=== PATIENT | male | born 1975 | race Caucasian/White ===

== ENCOUNTER 2019-07-16 21:01 | Emergency (ER) | payer OTHER ==
[~2019-07-16] VITALS: Ht 175.3 cm; Wt 98.0 kg
[2019-07-16 21:05] VITALS: BP 156/104
--- NOTE | 2019-07-16 21:07 | PHYS DOC ---
Past History Past Medical History: Sciatica General Adult HPI: HPI: "... I got a fever...and now this really bad rt.hip pain.... I called ... they said I might have a septic hip.... I had been camping...but I have not had any tick bites..."'' I am having trouble sleeping because of discomfort..." Patient is a 44 year old male who presents with above hx and complaints of fever and severe right hip pain for the last 3 days. Patient denies any recent travel outside the [place] area. No recent TDY's. No history of immunosuppression. No history of severe ill contacts. Patient is up-to-date with vaccinations through the . Patient does have a past history of sciatica. Patient relates his pain is not similar to his sciatic pain. On exam pain appears to be located in right hip bursa. Does not appear to have a sciatic component. Pt. follows with . Review of Systems: Review of Systems: Constitutional: Complains of fever or chills Eyes: Denies change in visual acuity HENT: Denies nasal congestion or sore throat Respiratory: Denies cough or shortness of breath Cardiovascular: Denies chest pain or edema GI: Denies abdominal pain, nausea, vomiting, bloody stools or diarrhea : Denies dysuria Musculoskeletal: Complains of severe right hip pain Integument: Denies rash Neurologic: Denies headache, focal weakness or sensory changes Endocrine: Denies polyuria or polydipsia Lymphatic: Denies swollen glands Psychiatric: Denies depression or anxiety Heart Score: Risk Factors: Risk Factors: DM, Current or recent (<one month) smoker, HTN, HLP, family history of CAD, obesity. Risk Scores: Score 0 - 3: 2.5% MACE over next 6 weeks - Discharge Home Score 4 - 6: 20.3% MACE over next 6 weeks - Admit for Clinical Observation Score 7 - 10: 72.7% MACE over next 6 weeks - Early Invasive Strategies Family History: Family History: Noncontributory Current Medications: Current Meds: See nursing for home meds Allergies: Allergies: No known drug allergies Physical Exam: PE: Constitutional: Well developed, well nourished, mild distress, non-toxic appearance. [] HENT: Normocephalic, atraumatic, bilateral external ears normal, oropharynx moist, no oral exudates, nose swollen turbinates and clear rhinorrhea Eyes: PERRLA, EOMI, conjunctiva normal, no discharge. [] Neck: Normal range of motion, no tenderness, supple, no stridor. [] Cardiovascular:Heart rate regular rhythm, no murmur [] Lungs & Thorax: Bilateral breath sounds equal at apex on auscultation [] Abdomen: Bowel sounds normal, soft, no tenderness, no masses, no pulsatile masses. [] Skin: Warm, dry, no erythema, no rash. [] Back: No tenderness, no CVA tenderness. [] Extremities: No tenderness, no cyanosis, no clubbing, ROM intact, no edema. [Except] Right hip bursa area tender to palpation Neurologic: Alert and oriented X 3, normal motor function, normal sensory function, no focal deficits noted. [] DTRs +2 patella and Achilles. Psychologic: Affect anxious, judgement normal, mood normal. [] EKG: EKG: [] Radiology/Procedures: Radiology/Procedures: [][place] [address] IMAGING REPORT Signed PATIENT: ANG NICHOLS ACCOUNT: [id number] : 1975 LOCATION: ER AGE: 44 SEX: M EXAM STATUS: REG ER ORD. PHYSICIAN: ELAINE BARRETT MD REASON: Severe lower back pain, evaluate Rt. hip for septic joint PROCEDURE: CT LUMBAR SPINE WO CONTRAST PQRS Compliance Statement: One or more of the following individualized dose reduction techniques were utilized for this examination: 1. Automated exposure control 2. Adjustment of the mA and/or kV according to patient size 3. Use of iterative reconstruction technique CT LUMBAR SPINE WO CONTRAST, CT PELVIS W/CONTRAST Clinical Indication: Severe lower back and right hip pain. Comparison: None. TECHNIQUE: Helical CT imaging of the lumbar spine is performed without IV contrast. Helical CT imaging of the pelvis is performed after 74 cc of Omnipaque 300 IV contrast. Findings: There is no acute fracture of the lumbar spine. The vertebral body height and alignment are maintained. There is mild degenerative endplate spurring. There is no significant disc space narrowing. L4/L5: There is a broad-based posterior disc osteophyte complex. There is mild facet hypertrophy. Central canal stenosis is normal within mild. The neural foramina are adequate. L5/S1: Small posterior disc bulge. The central canal and neural foramina are patent. There is a 4 mm nonobstructing left renal calculus. There is no hydronephrosis. Appendectomy. Urinary bladder is normal. Prostate size normal. No pelvic free fluid. There is no right hip joint effusion. There is no acute fracture. No intramuscular hematoma. The sacrum alignment is maintained. No acute pelvic fracture. IMPRESSION: 1. No acute fracture or malalignment of the lumbar spine. There is no significant central canal stenosis. 2. No acute pelvic or hip fracture. There is no right hip joint effusion. 3. 4 mm nonobstructing left renal calculus. Electronically signed by: Eben Theodore MD (07/16/2019 11:44 PM) [id number] DICTATED AND SIGNED BY: EBEN THEODORE MD DATE: 07/16/19 2344 CC: ELAINE BARRETT MD; MYNOR RUSH DO ~ Course & Med Decision Making: Course & Med Decision Making Pertinent Labs and Imaging studies reviewed. (See chart for details) Patient take Tylenol or Ibuprofen as needed for discomfort and fever. Patient push fluids. Patient follow-up primary care. Patient to review CT findings with primary care and orthopedics. Patient may take Vicoprofen up to 4 times a day for marked pain. Return if any concerns. Self isolate. Suspect a component of viral syndrome. Follow-up pending cultures. Take dose of MOM when home. Impression: 1. Right hip pain-appears to be bursa area 2. Leukocytosis 11.2 3. Glucose 136 4. Hypomagnesia 1.7 5. Mild Elevation of CRP 11.0 6. Suspect Viral Syndrome [] Dragon Disclaimer: Adilia Disclaimer: This electronic medical record was generated, in whole or in part, using a voice recognition dictation system. Departure Departure: Disposition: 01 HOME/RESIDENCE PRIOR TO ADM Condition: STABLE Referrals: MYNOR RUSH DO (PCP) Scripts Hydrocodone/Ibuprofen (HYDROCODONE-IBUPROFEN 7.5-200 ) 1 Each Tablet 1 TAB PO PRN Q6HRS PRN for PAIN, #30 TAB 0 Refills Prov: ELAINE BARRETT MD 07/17/19 Adilia Disclaimer This chart was dictated in whole or in part using Voice Recognition software in a busy, high-work load, and often noisy Emergency Department environment. It may contain unintended and wholly unrecognized errors or omissions. ELAINE BARRETT MD July 16, 2019 21:07
[2019-07-16] MEDS ORDERED: IV RINGERS SOLUTION,LACTATED 1,000 ML IV SCH (22:15)
[2019-07-16] MEDS ORDERED: KETOROLAC 30 MG/ML VIAL. IVP ONE (22:15)
[2019-07-16 22:57] LABS: CALCIUM 8.6 mg/dL (8.5-10.1); CREATININE 1.1 mg/dL (0.7-1.3); GFR 73.1
[2019-07-16] MEDS ORDERED: IOHEXOL 300 MG/ML 75 ML VIAL. IV ONE (23:00)
[2019-07-16] MEDS ORDERED: CONTRAST GIVEN MC PRN (23:00)
[2019-07-16 23:03] LABS: ALBUMIN 3.7 g/dL (3.4-5.0); DIRECT BILIRUBIN 0.1 mg/dL (0.0-0.2); MAGNESIUM 1.7 mg/dL (1.8-2.4); TOTAL BILIRUBIN 0.2 mg/dL (0.2-1.0); TOTAL PROTEIN 6.6 g/dL (6.4-8.2)
[2019-07-16 23:44] LABS: BARBITURATES NEG (NEG); BENZODIAZEPINES NEG (NEG); CANNABINOIDS NEG (NEG); COCAINE NEG (NEG); METHADONE NEG (NEG); OPIATES NEG (NEG); PHENCYCLIDINE NEG (NEG)
[2019-07-16 23:46] LABS: BILIRUBIN,URINE NEG (NEG); CLARITY,URINE CLEAR; COLOR,URINE YELLOW; GLUCOSE,URINE NEG (NEG)
[2019-07-16 23:47] LABS: BACTERIA,URINE 0 /HPF (0-FEW); NITRITE,URINE NEG (NEG); RBC,URINE 0 /HPF (0-2); SQUAMOUS EPITHELIAL CELL,UR OCC /LPF; UROBILINOGEN,URINE 0.2 mg/dL (0.2 mg/dL); WBC,URINE OCC /HPF (0-4)
--- NOTE | 2019-07-16 23:47 | RAD ---
PQRS Compliance Statement: One or more of the following individualized dose reduction techniques were utilized for this examination: 1. Automated exposure control 2. Adjustment of the mA and/or kV according to patient size 3. Use of iterative reconstruction technique CT LUMBAR SPINE WO CONTRAST, CT PELVIS W/CONTRAST Clinical Indication: Severe lower back and right hip pain. Comparison: None. TECHNIQUE: Helical CT imaging of the lumbar spine is performed without IV contrast. Helical CT imaging of the pelvis is performed after 74 cc of Omnipaque 300 IV contrast. Findings: There is no acute fracture of the lumbar spine. The vertebral body height and alignment are maintained. There is mild degenerative endplate spurring. There is no significant disc space narrowing. L4/L5: There is a broad-based posterior disc osteophyte complex. There is mild facet hypertrophy. Central canal stenosis is normal within mild. The neural foramina are adequate. L5/S1: Small posterior disc bulge. The central canal and neural foramina are patent. There is a 4 mm nonobstructing left renal calculus. There is no hydronephrosis. Appendectomy. Urinary bladder is normal. Prostate size normal. No pelvic free fluid. There is no right hip joint effusion. There is no acute fracture. No intramuscular hematoma. The sacrum alignment is maintained. No acute pelvic fracture. IMPRESSION: 1. No acute fracture or malalignment of the lumbar spine. There is no significant central canal stenosis. 2. No acute pelvic or hip fracture. There is no right hip joint effusion. 3. 4 mm nonobstructing left renal calculus. Electronically signed by: Eben Theodore MD (07/16/2019 11:44 PM) [id number]
[2019-07-16 23:51] LABS: AMPHETAMINE/METHAMPHETAMINE NEG (NEG)
[2019-07-17 00:01] LABS: BASO # 0.1 x10^3/uL (0.0-0.2); BASO % 1 % (0-3); EOS # 0.1 x10^3/uL (0.0-0.7); EOS % 1 % (0-3); HEMATOCRIT 40.2 % (39.0-53.0); HEMOGLOBIN 13.7 g/dL (13.0-17.5); LYMPH # 1.6 x10^3/uL (1.0-4.8); LYMPH % 14 % (24-48); MEAN CORPUSCULAR HEMOGLOBIN 29 pg (25-35); MEAN CORPUSCULAR HGB CONC 34 g/dL (31-37); MEAN CORPUSCULAR VOLUME 86 fL (79-100); MONO % 9 % (0-9); NEUT # 8.4 x10^3uL (1.8-7.7); NEUT % 75 % (31-73); PLATELET COUNT 208 x10^3/uL (140-400); RED BLOOD COUNT 4.69 x10^6/uL (4.30-5.70); RED CELL DISTRIBUTION WIDTH 13.2 % (11.5-14.5); WHITE BLOOD COUNT 11.2 x10^3/uL (4.0-11.0)
[2019-07-17] MEDS ORDERED: MORPHINE SULFATE 10 MG/ML SYRINGE. ONE (00:11)
[2019-07-17] MEDS ORDERED: HYDR-1179 PO (00:18)
[2019-07-17] MEDS ORDERED: MORPHINE SULFATE 10 MG/ML SYRINGE. SQ ONE (00:30)
[2019-07-17 00:35] LABS: INFLUENZA A PATIENT NEGATIVE (NEGATIVE); INFLUENZA B PATIENT NEGATIVE (NEGATIVE)
== END 2019-07-17 01:00 | disposition home or self-care (01) ==
LOC: ER 21:01
DX: M25.551 Pain in right hip (principal); D72.829 Elevated white blood cell count, unspecified; E83.42 Hypomagnesemia; R79.82 Elevated C-reactive protein (CRP); R50.9 Fever, unspecified
CPT/HCPCS: 36415; 72131; 72193; 80048; 80076; 80307; 81001; 82550; 83690; 83735; 84484; 85025; 85610; 85730; 86140; 87040; 87804; 96372; 96374; 99285; J1885; J2270; J7120; Q9967

== ENCOUNTER 2019-07-18 14:23 | Emergency (ER) | payer OTHER ==
[~2019-07-18] VITALS: Ht 175.3 cm; Wt 98.0 kg
[~2019-07-18 14:23] MED LIST: HYDR-1179 PO
[2019-07-18 14:39] VITALS: BP 164/107
[2019-07-18] MEDS ORDERED: IOHEXOL 300 MG/ML 75 ML VIAL. IV ONE (15:00)
[2019-07-18] MEDS ORDERED: KETOROLAC 30 MG/ML VIAL. ONE (15:09)
[2019-07-18 15:23] LABS: BASO % 0 % (0-3); EOS # 0.1 x10^3/uL (0.0-0.7); EOS % 1 % (0-3); HEMATOCRIT 41.2 % (39.0-53.0); HEMOGLOBIN 14.1 g/dL (13.0-17.5); LYMPH # 1.8 x10^3/uL (1.0-4.8); LYMPH % 20 % (24-48); MEAN CORPUSCULAR HEMOGLOBIN 29 pg (25-35); MEAN CORPUSCULAR HGB CONC 34 g/dL (31-37); MEAN CORPUSCULAR VOLUME 86 fL (79-100); MONO # 0.9 x10^3/uL (0.0-1.1); MONO % 10 % (0-9); NEUT # 6.3 x10^3uL (1.8-7.7); NEUT % 69 % (31-73); PLATELET COUNT 204 x10^3/uL (140-400); RED BLOOD COUNT 4.79 x10^6/uL (4.30-5.70); RED CELL DISTRIBUTION WIDTH 13.1 % (11.5-14.5); WHITE BLOOD COUNT 9.2 x10^3/uL (4.0-11.0)
[2019-07-18 15:32] LABS: CALCIUM 8.8 mg/dL (8.5-10.1); CREATININE 1.1 mg/dL (0.7-1.3); GFR 73.1; POTASSIUM 3.7 mmol/L (3.5-5.1)
[2019-07-18 15:46] LABS: ALBUMIN 3.6 g/dL (3.4-5.0); TOTAL BILIRUBIN 0.4 mg/dL (0.2-1.0); TOTAL PROTEIN 7.2 g/dL (6.4-8.2)
--- NOTE | 2019-07-18 15:49 | RAD ---
EXAM: CT pelvis with contrast DATE: 07/18/2019 2:43 PM COMPARISON: No prior INDICATION: Right hip pain, fevers TECHNIQUE: CT of the pelvis was performed following the administration of IV contrast. Axial, coronal and sagittal reformatted images were generated. PQRS compliance statement - One or more of the following individualized dose reduction techniques were utilized for this study: 1. Automated exposure control 2. Adjustment of the mA and/or kV according to patient size 3. Use of iterative reconstruction technique FINDINGS: Evaluation for joint infection is limited by CT. Within these constraints, no definite erosive/destructive change or periostitis is seen to suggest acute osteomyelitis. No definite hip joint effusion is seen. Grossly normal muscle bulk about the pelvis, without significant fatty atrophy. Moderate colonic stool content. Prior appendectomy changes are seen. No small or large bowel dilatation in the visualized portions.. No pelvic lymphadenopathy. IMPRESSION: 1. Evaluation for joint infection is limited by CT. No definite CT evidence for osteomyelitis. No joint effusion or periarticular peripherally enhancing fluid collection is seen to suggest associated infection. However, MRI is more sensitive and is recommended if there is persistent clinical concern. Electronically signed by: Gustabo Callahan MD (07/18/2019 3:46 PM) DENNIS
--- NOTE | 2019-07-18 16:54 | PHYS DOC ---
Past History Past Medical History: Sciatica Past Surgical History: No Surgical History, Appendectomy Additional Past Surgical Histo: Has loop monitor Alcohol Use: Occasionally General Adult EDM: Chief Complaint: HIP PAIN HPI: HPI: 44-year-old male past medical history significant for hypertension, hyperlipidemia and DDD, presents to the ED after nurse practitioner at [facility] office referred patient to come to the ED, after reviewing his 07/13 ed workup (via phone call), concerned for his "white count." Patient presents to the ED as a bounce back, with acute on chronic atraumatic right hip pain, states pain is improving, last had a fever 2 days ago. Able to bear weight and flex/extend hip. Took 1 tablet of his hydrocodone/ibuprofen with some relief. Denies any STI symptoms, declines any STI testing. ROS: Denies associated midline back pain, weight loss, saddle anesthesia, urinary bowel retention or incontinence, abdominal pain, nausea, vomiting, chest pain, sore throat, cough, dyspnea, neck stiffness, headache, neurologic deficits, radiculopathy dysuria, hematuria, urethral discharge or paresthesias. Current Medications: Current Meds: Current Medications Medications (Trade) Dose Ordered Sig/Kyler Start Time Stop Time Status Last Admin Dose Admin Iohexol (Omnipaque 300 Mg/ml) 75 ml 1X ONCE 07/18/19 15:00 07/18/19 15:01 DC 07/18/19 15:14 75 ML Ketorolac Tromethamine (Toradol 30mg Vial) 30 mg STK-MED ONCE 07/18/19 15:09 07/18/19 15:09 DC Allergies: Allergies: Allergies Coded Allergies Type Severity Reaction Last Updated Verified No Known Drug Allergies 07/16/19 No Physical Exam: PE: Constitutional: Well developed, well nourished, no acute distress-comfortable even w/ROM testing, non-toxic appearance, mildly obese HENT: Normocephalic, atraumatic, bilateral external ears normal, oropharynx moist, no oral exudates, nose normal, no neck stiffness Eyes: EOMI, conjunctiva normal, no discharge. [] Neck: Normal range of motion, no tenderness, supple, no stridor. [] Cardiovascular:Heart rate regular rhythm, no murmur [] Lungs & Thorax: Bilateral breath sounds clear to auscultation [] Abdomen: Bowel sounds normal, soft, no tenderness, no masses, no pulsatile masses. [] Skin: Warm, dry, no erythema, no rash-no right hip effusion Back: No tenderness, no CVA tenderness. [] Extremities: No tenderness, no cyanosis, no clubbing, ROM intact, no edema, full hip flexion and extension, straight lefg test negative bl Neurologic: Alert and oriented X 3, normal motor function, normal sensory function, no focal deficits noted, ambulates with a steady gait, Psychologic: Affect normal, judgement normal, mood normal. [] Current Patient Data: Labs: Laboratory Tests Test 07/18/19 15:04 White Blood Count 9.2 x10^3/uL (4.0-11.0) Red Blood Count 4.79 x10^6/uL (4.30-5.70) Hemoglobin 14.1 g/dL (13.0-17.5) Hematocrit 41.2 % (39.0-53.0) Mean Corpuscular Volume 86 fL (79-100) Mean Corpuscular Hemoglobin 29 pg (25-35) Mean Corpuscular Hemoglobin Concent 34 g/dL (31-37) Red Cell Distribution Width 13.1 % (11.5-14.5) Platelet Count 204 x10^3/uL (140-400) Neutrophils (%) (Auto) 69 % (31-73) Lymphocytes (%) (Auto) 20 % (24-48) L Monocytes (%) (Auto) 10 % (0-9) H Eosinophils (%) (Auto) 1 % (0-3) Basophils (%) (Auto) 0 % (0-3) Neutrophils # (Auto) 6.3 x10^3uL (1.8-7.7) Lymphocytes # (Auto) 1.8 x10^3/uL (1.0-4.8) Monocytes # (Auto) 0.9 x10^3/uL (0.0-1.1) Eosinophils # (Auto) 0.1 x10^3/uL (0.0-0.7) Basophils # (Auto) 0.0 x10^3/uL (0.0-0.2) Sodium Level 140 mmol/L (136-145) Potassium Level 3.7 mmol/L (3.5-5.1) Chloride Level 104 mmol/L (98-107) Carbon Dioxide Level 27 mmol/L (21-32) Anion Gap 9 (6-14) Blood Urea Nitrogen 16 mg/dL (8-26) Creatinine 1.1 mg/dL (0.7-1.3) Estimated GFR (Cockcroft-Gault) 73.1 BUN/Creatinine Ratio 15 (6-20) Glucose Level 119 mg/dL (70-99) H Lactic Acid Level 1.5 mmol/L (0.4-2.0) Calcium Level 8.8 mg/dL (8.5-10.1) Total Bilirubin 0.4 mg/dL (0.2-1.0) Aspartate Amino Transferase (AST) 22 U/L (15-37) Alanine Aminotransferase (ALT) 45 U/L (16-63) Alkaline Phosphatase 42 U/L (46-116) L Total Protein 7.2 g/dL (6.4-8.2) Albumin 3.6 g/dL (3.4-5.0) Albumin/Globulin Ratio 1.0 (1.0-1.7) Vital Signs: Vital Signs Date Time Temp Pulse Resp B/P (MAP) Pulse Ox O2 Delivery O2 Flow Rate FiO2 07/18/19 14:39 97.9 78 16 164/107 (126) 96 Room Air EKG: EKG: [] Radiology/Procedures: Radiology/Procedures: []Signed PATIENT: ANG NICHOLS ACCOUNT: [id number] : 1975 LOCATION: ER AGE: 44 SEX: M EXAM STATUS: REG ER ORD. PHYSICIAN: MGIUEL ANGEL CHIN DO REASON: right hip pain,fever, concern for infection in hip PROCEDURE: CT PELVIS W/CONTRAST EXAM: CT pelvis with contrast DATE: 07/18/2019 2:43 PM COMPARISON: No prior INDICATION: Right hip pain, fevers TECHNIQUE: CT of the pelvis was performed following the administration of IV contrast. Axial, coronal and sagittal reformatted images were generated. PQRS compliance statement - One or more of the following individualized dose reduction techniques were utilized for this study: 1. Automated exposure control 2. Adjustment of the mA and/or kV according to patient size 3. Use of iterative reconstruction technique FINDINGS: Evaluation for joint infection is limited by CT. Within these constraints, no definite erosive/destructive change or periostitis is seen to suggest acute osteomyelitis. No definite hip joint effusion is seen. Grossly normal muscle bulk about the pelvis, without significant fatty atrophy. Moderate colonic stool content. Prior appendectomy changes are seen. No small or large bowel dilatation in the visualized portions.. No pelvic lymphadenopathy. IMPRESSION: 1. Evaluation for joint infection is limited by CT. No definite CT evidence for osteomyelitis. No joint effusion or periarticular peripherally enhancing fluid collection is seen to suggest associated infection. However, MRI is more sensitive and is recommended if there is persistent clinical concern. Electronically signed by: Gustabo Callahan MD (07/18/2019 3:46 PM) [facility] DICTATED AND SIGNED BY: GUSTABO CALLAHAN MD DATE: 07/18/19 3800 CC: MYNOR RUSH DO; MIGUEL ANGEL CHIN DO ~ Impressions: Improving atraumatic right hip pain, broad ddx-bursitis vs ddd vs MSK, no radiculopathy. Images with no effusion, MRI would be better to assess for osteomyelitis. Other threatening processes considered including AAA vs spinal stenosis, low suspicion given hx/pe. Pt will appearing with no neurologic deficits, afebrile, in no distress and is declining urinalysis studies along with STI studies. I recommended outpatient orthopedic follow-up. Strict ED return precautions given for neurologic deficits. All of patient's questions were answered and he was stable at time of discharge. I spoken with the patient and her caregivers. I explained the patient's condition, diagnoses and treatment plan based on the information available to me at this time. I have answered the patient and her caregiver's questions and addressed any concerns. The patient and her caregivers have a good understanding of patient's diagnosis, condition and treatment plan as can be expected at this point. Vital signs have been stable. Patient's condition is stable and appropriate for discharge from the emergency department. Patient will pursue further outpatient evaluation with primary care physician or other designated or consulting physician as outlined in the discharge instructions. The patient and/or caregivers are agreeable to this plan of care and follow-up instructions have been explained in detail. The patient and/or caregivers have received these instructions in written form and have expressed an understanding of the discharge instructions. The patient and/or caregivers are aware that any significant change of condition or worsening of symptoms should prompt immediate return to this or the closest emergency department or call to 911. Course & Med Decision Making: Course & Med Decision Making Pertinent Labs and Imaging studies reviewed. (See chart for details) [] Adilia Disclaimer: Adilia Disclaimer: This electronic medical record was generated, in whole or in part, using a voice recognition dictation system. Departure Departure: Impression: Primary Impression: Hip pain, right Disposition: 01 HOME, SELF-CARE Condition: STABLE Referrals: MYNOR RUSH DO (PCP) ELAINE DECKER MD Patient Instructions: Hip Pain MIGUEL ANGEL CHIN DO July 18, 2019 16:54
== END 2019-07-18 17:09 | disposition home or self-care (01) ==
LOC: ER 14:23
DX: M25.551 Pain in right hip (principal); R50.9 Fever, unspecified; I10 Essential (primary) hypertension; Z90.89 Acquired absence of other organs; Z98.890 Other specified postprocedural states
CPT/HCPCS: 36415; 72193; 80053; 83605; 85025; 87040; 99285; Q9967

== ENCOUNTER → 2020-12-08 | Outpatient (CLI) | payer OTHER ==
--- NOTE | 2020-12-08 14:58 | RAD ---
XR SACRUM AND COCCYX 2+VIEWS History: Tailbone pain Comparison: CT pelvis 07/18/2019 Technique: 3 views of the sacrum and coccyx. Findings: Osseous mineralization is normal. No fracture or dislocaton. Stable, normal alignment at the sacrococ cygeal junction. No significant degenerative changes. Surgical material at the cecal base. Left pelvi c phleboliths. Mild lower lumbar disc space narrowing at L4-L5. Impression: 1. No acute osseous abnormality of the sacrum and coccyx. Electronically signed by: Juan Manuel Sarah MD (12/08/2020 2:56 PM) [id number]
== END ==
LOC: RAD 13:42
PROVIDERS: ATTEND Nurse Practitioner Family
DX: I87.8 Other specified disorders of veins (principal); M48.061 Spinal stenosis, lumbar region without neurogenic claudication; M53.3 Sacrococcygeal disorders, not elsewhere classified
CPT/HCPCS: 72220